=== PATIENT | female | born 1990 | race African-American/Black ===

== ENCOUNTER 2017-10-06 14:19 | Emergency (ER) | payer SELFPAY ==
[~2017-10-06] VITALS: Ht 170.2 cm; Wt 107.8 kg
[2017-10-06] MEDS ORDERED: ZYRTEC10 M3 PO (16:09)
[2017-10-06] MEDS ORDERED: BACTROBAN OINTM22 GM TP (16:09)
[2017-10-06 17:07] VITALS: BP 112/74
== END 2017-10-06 16:47 | disposition home or self-care (01) ==
LOC: EME 14:19
DX: L25.9 Unspecified contact dermatitis, unspecified cause (principal)
CPT/HCPCS: 99281; 99283